=== PATIENT | female | born 1990 | race Caucasian/White ===

== ENCOUNTER 2017-09-26 17:21 | Inpatient (IN) | payer OTHER ==
[~2017-09-26] VITALS: Ht 172.7 cm; Wt 78.9 kg
[~2017-09-26 17:21] MED LIST: BENADRYL25 MG PO; CALADRYL LOTIO180 ML SPEPROC; FLUCONAZOLE150 MG PO; KEFLEX500 MG PO; MACROBID 100 M100 MG PO; PRENA1 CHEW TA1.4 MG; ZYRTEC10 MG PO
[2017-09-26] MEDS ORDERED: PRENATAL 19 TA1 EACH PO (22:21)
[2017-09-26] MEDS ORDERED: ZANTAC150 MG PO (22:22)
[2017-09-27] MEDS ORDERED: IBUPROFEN600 MG PO (11:39)
== END 2017-09-28 17:58 | DRG 775 ==
LOC: OB/GYN 17:21 → LDR 17:21 → OB/GYN 20:23
PROC: 10E0XZZ Delivery of Products of Conception, External Approach (ICD-10-PCS; principal; 2017-09-26)
PROC: 10907ZC Drainage of Amniotic Fluid, Therapeutic from Products of Conception, Via Natural or Artificial Opening (ICD-10-PCS; 2017-09-26)
PROC: 4A033R1 Measurement of Arterial Saturation, Peripheral, Percutaneous Approach (ICD-10-PCS; 2017-09-26)
PROC: 4A1HXCZ Monitoring of Products of Conception, Cardiac Rate, External Approach (ICD-10-PCS; 2017-09-26)
DX: O80 Encounter for full-term uncomplicated delivery (principal); Z3A.38 38 weeks gestation of pregnancy; Z37.0 Single live birth

== ENCOUNTER 2021-06-06 21:27 | Emergency (ER) | payer OTHER ==
[~2021-06-06] VITALS: Ht 172.7 cm; Wt 81.6 kg
[~2021-06-06 21:27] MED LIST changes: +IBUPROFEN600 MG PO; +PRENATAL 19 TA1 EACH PO; +ZANTAC150 MG PO
[2021-06-06] MEDS ORDERED: ZOFRAN4 MG (21:46)
[2021-06-06] MEDS ORDERED: PRENATABS RX T1 EACH (21:46)
[2021-06-06] MEDS ORDERED: FLONASE16 GM (21:46)
[2021-06-06] MEDS ORDERED: ZYRTEC10 M3 (21:46)
[2021-06-07] MEDS ORDERED: CEPHALEXIN500 MG PO (03:04)
== END 2021-06-07 03:45 | disposition home or self-care (01) ==
LOC: ER 21:27
DX: O23.32 Infections of other parts of urinary tract in pregnancy, second trimester (principal); N39.0 Urinary tract infection, site not specified; O26.892 Other specified pregnancy related conditions, second trimester; R10.2 Pelvic and perineal pain; Z3A.16 16 weeks gestation of pregnancy

== ENCOUNTER → 2021-08-11 | Emergency (ER) | payer OTHER ==
[~2021-08-11] VITALS: Ht 172.7 cm; Wt 86.2 kg
[~2021-08-11] MED LIST changes: +CEPHALEXIN500 MG PO; +FLONASE16 GM; +PRENATABS RX T1 EACH; +ZOFRAN4 MG; +ZYRTEC10 M3
== END | disposition left against medical advice (07) ==
LOC: ER 16:35
DX: H92.09 Otalgia, unspecified ear (principal); Z3A.25 25 weeks gestation of pregnancy; O26.892 Other specified pregnancy related conditions, second trimester; Z53.29 Procedure and treatment not carried out because of patient's decision for other reasons

== ENCOUNTER 2021-10-16 16:58 | Outpatient (CLI) | payer OTHER | END 2021-10-16 20:15 | disposition home or self-care (01) | LOC: OBS/DEL 16:58 | PROVIDERS: ATTEND Specialist | DX: O26.893 Other specified pregnancy related conditions, third trimester (principal); Z3A.35 35 weeks gestation of pregnancy; N39.0 Urinary tract infection, site not specified; M54.89 Other dorsalgia ==